=== PATIENT | male | born 1975 ===

== ENCOUNTER 2019-08-20 20:28 | Emergency (ER) | payer MEDICAID ==
[~2019-08-20] VITALS: Ht 177.8 cm; Wt 120.6 kg
[2019-08-20 20:29] VITALS: BP 153/87
[2019-08-20] MEDS ORDERED: NEOSPORIN OINT. PKT 1 PACKET ONE (21:00)
[2019-08-20] MEDS ORDERED: LIDOCAINE 1%-EPI 1:100K, 20ML SQ ONE (21:00)
[2019-08-20] MEDS ORDERED: LIDOCAINE-MPF 1%, 5ML ONE (21:00)
[2019-08-20] MEDS ORDERED: LIDOCAINE 1%-EPI 1:100K, 20ML ONE (21:07)
[2019-08-20] MEDS ORDERED: NEOSPORIN OINT. PKT 1 PACKET TP ONE (21:30)
--- NOTE | 2019-08-20 21:39 | NUR ---
Wound lanced by provider. Patient tolerated well w/ local lidocaine as anesthesia
[2019-08-20] MEDS ORDERED: CEPHALEXIN 500 MG CAPSULE PO ONE (22:00)
[2019-08-20] MEDS ORDERED: SULFAMETH./TRIMETHOPRIM DS 800MG/160MG TABLET PO ONE (22:00)
[2019-08-20] MEDS ORDERED: SULFAMETH./TRIMETHOPRIM DS 800MG/160MG TABLET ONE (22:03)
[2019-08-20] MEDS ORDERED: CEPHALEXIN 500 MG CAPSULE ONE (22:03)
--- NOTE | 2019-08-20 22:07 | NUR ---
medicated per emar
== END 2019-08-20 22:27 | disposition home or self-care (01) ==
LOC: ED 22:00
DX: L03.312 Cellulitis of back [any part except buttock and flank] (principal); L02.212 Cutaneous abscess of back [any part, except buttock and flank]; Z76.0 Encounter for issue of repeat prescription; Z72.9 Problem related to lifestyle, unspecified
CPT/HCPCS: 10060; 99284; J3490

== ENCOUNTER 2019-08-23 20:07 | Emergency (ER) | payer MEDICAID ==
[~2019-08-23] VITALS: Ht 177.8 cm; Wt 120.7 kg
[2019-08-23 20:37] VITALS: BP 146/89
[2019-08-23] MEDS ORDERED: LIDOCAINE 1%-EPI 1:100K, 20ML SQ ONE (21:30)
[2019-08-23] MEDS ORDERED: LIDOCAINE 1%-EPI 1:100K, 20ML ONE (21:32)
== END 2019-08-23 22:14 | disposition home or self-care (01) ==
LOC: ED 22:05
DX: L02.212 Cutaneous abscess of back [any part, except buttock and flank] (principal); Z72.9 Problem related to lifestyle, unspecified; E66.01 Morbid (severe) obesity due to excess calories; Z68.38 Body mass index [BMI] 38.0-38.9, adult
CPT/HCPCS: 10060; 99283; 99284

== ENCOUNTER 2019-08-26 11:23 | Emergency (ER) | payer MEDICAID ==
[~2019-08-26] VITALS: Ht 182.9 cm; Wt 124.0 kg
--- NOTE | 2019-08-26 11:38 | NUR ---
RECEIVED REPORT FROM AISHA. SERGIO COMPLAINED OF BLURRY VISION WHILE AT WORK ON COMPUTER. DENIES HEADACHE. BLURRY VISION "IS STILL THERE BUT NOT BAD". DENIES FALLING. DENIES LOC. ALL EXTREMETIES EQUAL BILATERAL STRENGTH. REPORTS SENSATION ON ALL EXTREMTIES. BLOOD SUGAR IN AMBULANCE WAS "268". SERGIO IN ROOM. CALL LIGHT WITHIN REACH.
[2019-08-26] MEDS ORDERED: LOSA1TAB22 PO (12:28)
[2019-08-26] MEDS ORDERED: SIMV40TA3 PO (12:28)
[2019-08-26] MEDS ORDERED: METO25TA35 PO (12:28)
[2019-08-26] MEDS ORDERED: CEPH-376 PO (12:28)
[2019-08-26] MEDS ORDERED: METF500T27 PO (12:28)
[2019-08-26 12:32] LABS: BASOPHILS # (AUTO) 0.03 x10^3/uL (0-0.1); BASOPHILS % (AUTO) 0 % (0-1); EOSINOPHILS # (AUTO) 0.14 x10^3/uL (0-0.4); EOSINOPHILS % (AUTO) 1 % (1-7); LYMPHOCYTES # (AUTO) 2.46 x10^3/uL (1-3.4); LYMPHOCYTES % (AUTO) 24 % (22-44); MD NO; MEAN CORPUSCULAR HEMOGLOBIN 30.3 pg (27.5-34.5); MEAN CORPUSCULAR HGB CONC 33.1 g/dL (33.2-36.2); MEAN CORPUSCULAR VOLUME 91.5 fL (81-97); MEAN PLATELET VOLUME 7.6 fL (7.4-10.4); MONOCYTES # (AUTO) 0.72 x10^3/uL (0.2-0.8); MONOCYTES % (AUTO) 7 % (2-9); NEUTROPHILS % (AUTO) 68 % (42-75); PLATELET COUNT 448 x10^3/uL (130-400); RED BLOOD COUNT 4.48 x10^6/uL (4.38-5.82)
[2019-08-26 12:39] LABS: ALBUMIN 2.9 g/dL (3.4-5.0); ANION GAP 6 mmol/L (5-15); CALCIUM 9.2 mg/dL (8.5-10.1); CHLORIDE 104 mmol/L (98-107); CREATININE 0.97 mg/dL (0.7-1.3)
[2019-08-26 12:49] LABS: FREE T4 (FREE THYROXINE) 1.43 ng/dL (0.76-1.46)
[2019-08-26 13:39] VITALS: BP 122/86
== END 2019-08-26 13:41 | disposition home or self-care (01) ==
LOC: ED 13:10
DX: E11.65 Type 2 diabetes mellitus with hyperglycemia (principal); I10 Essential (primary) hypertension; H53.8 Other visual disturbances; R51 Headache; Z72.9 Problem related to lifestyle, unspecified
CPT/HCPCS: 36415; 80048; 82040; 84439; 84443; 85025; 93005; 99284

== ENCOUNTER 2019-09-12 19:18 | Emergency (ER) | payer MEDICAID ==
[~2019-09-12] VITALS: Ht 167.6 cm; Wt 121.8 kg
[~2019-09-12 19:18] MED LIST: CEPH-376 PO; LOSA1TAB22 PO; METF500T27 PO; METO25TA35 PO; SIMV40TA3 PO
[2019-09-12 19:28] VITALS: BP 144/89
== END 2019-09-12 20:00 | disposition home or self-care (01) ==
LOC: ED 19:48
DX: L02.414 Cutaneous abscess of left upper limb (principal); I10 Essential (primary) hypertension; E11.9 Type 2 diabetes mellitus without complications; E78.5 Hyperlipidemia, unspecified
CPT/HCPCS: 99281

== ENCOUNTER 2019-10-26 20:41 | Emergency (ER) | payer MEDICAID ==
[~2019-10-26] VITALS: Ht 177.8 cm; Wt 118.3 kg
[2019-10-26 20:43] VITALS: BP 146/89
[2019-10-26] MEDS ORDERED: AZITHROMYCIN 500 MG TABLET ONE (22:18)
[2019-10-26] MEDS ORDERED: AZITHROMYCIN 500 MG TABLET PO ONE (22:30)
== END 2019-10-26 22:26 ==
LOC: ED 22:20
DX: J15.9 Unspecified bacterial pneumonia (principal); R07.89 Other chest pain; I10 Essential (primary) hypertension; E11.9 Type 2 diabetes mellitus without complications
CPT/HCPCS: 71046; 93005; 99283

== ENCOUNTER 2019-11-02 22:33 | Emergency (ER) | payer MEDICAID ==
[~2019-11-02] VITALS: Ht 182.9 cm; Wt 117.9 kg
[2019-11-03] MEDS ORDERED: DEXAMETHASONE 4 MG TABLET PO ONE
[2019-11-03] MEDS ORDERED: DEXAMETHASONE 4 MG TABLET ONE (00:16)
[2019-11-03 00:21] VITALS: BP 132/82
== END 2019-11-03 00:28 | disposition home or self-care (01) ==
LOC: ED 23:30
DX: J20.8 Acute bronchitis due to other specified organisms (principal); E11.9 Type 2 diabetes mellitus without complications; I10 Essential (primary) hypertension
CPT/HCPCS: 71046; 93005; 99283

== ENCOUNTER 2019-11-20 15:45 | Emergency (ER) | payer SELFPAY ==
[~2019-11-20] VITALS: Ht 175.3 cm; Wt 113.0 kg
[~2019-11-20 15:45] MED LIST changes: +SIMV40TA20 PO; -SIMV40TA3 PO
[2019-11-20 15:56] VITALS: BP 150/86
--- NOTE | 2019-11-20 16:13 | NUR ---
PT C/O ABSCESS TO LEFT SIDE OF BACK X5 DAYS, BUT WORSE OVER LAST COUPLE DAYS. HX MRSA. CONNECTED TO MONITORING. CALL LIGHT IN REACH. AWAITING ORDERS AT THIS TIME.
[2019-11-20] MEDS ORDERED: LIDOCAINE 1%-EPI 1:100K, 20ML ONE (16:51)
--- NOTE | 2019-11-20 16:53 | NUR ---
MEDS PULLED FOR PROVIDER ADMIN. I&D SET UP. PROVIDER AT BEDSIDE FOR I&D.
[2019-11-20] MEDS ORDERED: LIDOCAINE-MPF 1%, 5ML INFIL ONE (17:00)
--- NOTE | 2019-11-20 17:37 | NUR ---
PROVIDER COMPLETE WITH I&D. PT RESTING ON GURNEY. BUSH
== END 2019-11-20 18:08 | disposition home or self-care (01) ==
LOC: ED 16:59
DX: L02.212 Cutaneous abscess of back [any part, except buttock and flank] (principal); I10 Essential (primary) hypertension; E11.9 Type 2 diabetes mellitus without complications; E78.5 Hyperlipidemia, unspecified
CPT/HCPCS: 10060; 99283

== ENCOUNTER 2020-04-28 07:06 | Emergency (ER) | payer SELFPAY ==
[~2020-04-28] VITALS: Ht 182.9 cm; Wt 111.2 kg
--- NOTE | 2020-04-28 07:23 | NUR ---
44 Y/O MALE PRESENTS TO ED WITH C/O SOB. "I'VE BEEN COUGHING FOR ABOUT A WEEK. BROWINSH COLOR COMES UP WHEN I COUGH. IT STARTED WITH CONGESTION. I GOT TESTED FOR COVID YESTERDAY. I'VE HAD FEVERS AT HOME, BUT I DON'T KNOW HOW HIGH." EDPA BEDSIDE. PT PLACED ON CONT PULSE OX,NIBP, DIETARY DIRECTOR. NO C/O N/V/D, TRAUMA, SYNCOPE
--- NOTE | 2020-04-28 07:32 | NUR ---
PER LAB RESULTS, PT COVID POSITIVE.
[2020-04-28 08:30] LABS: ALANINE AMINOTRANSFERASE 26 U/L (12-78); ALBUMIN 2.6 g/dL (3.4-5.0); ANION GAP 8 mmol/L (5-15); CALCIUM 8.6 mg/dL (8.5-10.1); CHLORIDE 104 mmol/L (98-107); CREATININE 1.05 mg/dL (0.7-1.3)
[2020-04-28 08:35] LABS: ALKALINE PHOSPHATASE 58 U/L (45-117); BILIRUBIN,TOTAL 0.8 mg/dL (0.2-1.0); TOTAL PROTEIN 7.9 g/dL (6.4-8.2); TROPONIN I < 0.015 ng/mL (0.000-0.045)
--- NOTE | 2020-04-28 09:20 | NUR ---
SPOKE WITH LAB. SHE STATED THE COAG MACHINE HAS BEEN NOT WORKING PROPERLY. ALSO STATES IN "10-20 MINS THE CHEM AND COAGS SHOULD RESULT AND BE WORKING"
[2020-04-28 09:47] LABS: MEAN CORPUSCULAR HEMOGLOBIN 28.9 pg (27.5-34.5); MEAN CORPUSCULAR HGB CONC 33.4 g/dL (33.2-36.2); MEAN CORPUSCULAR VOLUME 86.7 fL (81-97); MEAN PLATELET VOLUME 8.6 fL (7.4-10.4); PLATELET COUNT 234 x10^3/uL (130-400); RED BLOOD COUNT 4.65 x10^6/uL (4.38-5.82); RED CELL DISTRIBUTION WIDTH 13.2 % (9.4-14.8)
[2020-04-28 09:53] LABS: D-DIMER (DIC) 0.41 ug/mlFEU (0.00-0.52); PROTIME 10.3 Seconds (9.6-11.5)
[2020-04-28 10:10] VITALS: BP 154/84
[2020-04-28 10:10] LABS: BASOPHILS # (AUTO) 0.02 x10^3/uL (0-0.1); BASOPHILS % (AUTO) 0 % (0-1); EOSINOPHILS # (AUTO) 0.03 x10^3/uL (0-0.4); EOSINOPHILS % (AUTO) 0 % (1-7); LYMPHOCYTES # (AUTO) 1.21 x10^3/uL (1-3.4); LYMPHOCYTES % (AUTO) 13 % (22-44); MD SCAN; MONOCYTES # (AUTO) 0.69 x10^3/uL (0.2-0.8); MONOCYTES % (AUTO) 7 % (2-9); NEUTROPHILS # (AUTO) 7.55 x10^3/uL (1.8-6.8); NEUTROPHILS % (AUTO) 80 % (42-75)
--- NOTE | 2020-04-28 10:10 | NUR ---
PT RESTING ON GURNEY. MEJIA. AWAITING LAB RESULTS.
--- NOTE | 2020-04-28 10:11 | NUR ---
REPORT TO SPENCER LOPEZ.
--- NOTE | 2020-04-28 11:28 | NUR ---
PT EDUCATED ON APPROPRIATE OF I.S. PT VERBALIZED AND DEMONSTRATED APPROPRIATE USE
--- NOTE | 2020-04-28 11:44 | NUR ---
BREAK RN. PT D/C PER ORDERS. PT HAS ALL OWN BELONGINGS UPON D/C.
== END 2020-04-28 11:47 | disposition home or self-care (01) ==
LOC: ED 08:19
DX: U07.1 COVID-19 (principal); J12.89 Other viral pneumonia; B34.9 Viral infection, unspecified; R50.9 Fever, unspecified; R42 Dizziness and giddiness; R06.02 Shortness of breath; R07.89 Other chest pain; R05 Cough; I10 Essential (primary) hypertension; E11.9 Type 2 diabetes mellitus without complications; R00.0 Tachycardia, unspecified
CPT/HCPCS: 36415; 71045; 80053; 82728; 83605; 83615; 84145; 84484; 85025; 85049; 85379; 85384; 85610; 85730; 86140; 87040; 93005; 99285

== ENCOUNTER 2020-06-07 14:55 | Inpatient (IN) | payer OTHER ==
[~2020-06-07] VITALS: Ht 182.9 cm; Wt 109.8 kg
--- NOTE | 2020-06-07 14:59 | NUR ---
NIL X1
[2020-06-07] MEDS ORDERED: AMLO10TA8 PO (15:20)
[2020-06-07] MEDS ORDERED: LISI-167 PO (15:20)
--- NOTE | 2020-06-07 15:22 | NUR ---
TASK RN: SUBSTERNAL SQUEEZING LIKE CP, WITH EPIGASTRIC PAIN RADIATING TO LEFT FLANK INTERMITTANT SINCE 06/06. DENIES SOB. PT ON ALL MONITORS, NAD NOTED, CALL LIGHT W/I REACH. AWAITING PROVIDER EVAL.
--- NOTE | 2020-06-07 15:24 | NUR ---
SBAR RPT TO SPENCER FARNSWORTH
[2020-06-07] MEDS ORDERED: ACETAMINOPHEN 500 MG TABLET ONE (15:46)
[2020-06-07] MEDS ORDERED: ACETAMINOPHEN 500 MG TABLET PO ONE (16:00)
[2020-06-07] MEDS ORDERED: SODIUM CHLORIDE FLUSH 10ML SYR IVF ONE (16:00)
--- NOTE | 2020-06-07 16:07 | NUR ---
TYLENOL GIVEN FOR 8/10 L FLANK PAIN. URINE COLLECTED/SENT TO LAB. PCXR COMPLETED, PT TO CT.
[2020-06-07 16:18] LABS: MICROSCOPIC NOT IND
[2020-06-07 16:30] LABS: BASOPHILS # (AUTO) 0.02 x10^3/uL (0-0.1); BASOPHILS % (AUTO) 0 % (0-1); EOSINOPHILS # (AUTO) 0.14 x10^3/uL (0-0.4); EOSINOPHILS % (AUTO) 1 % (1-7); LYMPHOCYTES % (AUTO) 25 % (22-44); MD NO; MEAN CORPUSCULAR HEMOGLOBIN 29.1 pg (27.5-34.5); MEAN CORPUSCULAR HGB CONC 33.4 g/dL (33.2-36.2); MEAN CORPUSCULAR VOLUME 87.2 fL (81-97); MEAN PLATELET VOLUME 8.1 fL (7.4-10.4); MONOCYTES # (AUTO) 0.95 x10^3/uL (0.2-0.8); MONOCYTES % (AUTO) 10 % (2-9); NEUTROPHILS % (AUTO) 64 % (42-75); PLATELET COUNT 301 x10^3/uL (130-400); RED BLOOD COUNT 4.59 x10^6/uL (4.38-5.82); RED CELL DISTRIBUTION WIDTH 13.8 % (9.4-14.8)
[2020-06-07 16:37] LABS: ALANINE AMINOTRANSFERASE 19 U/L (12-78); ANION GAP 7 mmol/L (5-15); CALCIUM 9.1 mg/dL (8.5-10.1); CHLORIDE 105 mmol/L (98-107); CREATININE 1.68 mg/dL (0.7-1.3)
[2020-06-07 16:41] LABS: ALKALINE PHOSPHATASE 93 U/L (45-117); BILIRUBIN,TOTAL 0.3 mg/dL (0.2-1.0); TOTAL PROTEIN 7.8 g/dL (6.4-8.2); TROPONIN I < 0.015 ng/mL (0.000-0.045)
[2020-06-07] MEDS ORDERED: SODIUM CHLORIDE 0.9%, 500ML IVBOLUS ONE (17:00)
[2020-06-07] MEDS ORDERED: INSULIN REGULAR 100 UNITS/ML, 3ML VIAL SQ-INSULIN ONE (17:30)
[2020-06-07] MEDS ORDERED: LABETALOL 5MG/ML, 20ML IVPush ONE (17:30)
[2020-06-07] MEDS ORDERED: LABETALOL 5MG/ML, 20ML ONE (17:31)
[2020-06-07] MEDS ORDERED: INSULIN SINGLE DOSE, ER ONE (17:33)
[2020-06-07] MEDS ORDERED: GABA600T7 PO (17:38)
--- NOTE | 2020-06-07 17:42 | NUR ---
PT RATING PAIN AT 5/10, DOWN FROM 8/10. INSULIN AND LABETALOL GIVEN PER ERP ORDER FOR BG 499, BP 202/109. [facility] IN TO SEE PT.
[2020-06-07] MEDS ORDERED: ONDANSETRON ODT 4 MG PO PRN (18:00)
[2020-06-07] MEDS ORDERED: DOCUSATE 100 MG CAPSULE PO PRN (18:00)
[2020-06-07] MEDS ORDERED: LIDODERM 5% PATCH TD PRN (18:00)
[2020-06-07] MEDS ORDERED: OXYcodone IR 5MG TABLET PO PRN (18:00)
[2020-06-07] MEDS ORDERED: LABETALOL 5MG/ML, 20ML IVPush PRN (18:00)
--- NOTE | 2020-06-07 18:03 | NUR ---
KASSI FROM LAB CALLED, STATED "COVID TEST IS POSITIVE." RESULTS REPORTED TO DR. LINO AND PRIMARY RN MARCIE, BOTH AWARE.
--- NOTE | 2020-06-07 18:40 | NUR ---
REPORT TO FABIEN LUBIN READY FOR TRANSPORT.
[2020-06-07 19:15] VITALS: BP 136/76
[2020-06-07] MEDS: MELATONIN 5 MG TABLET PO PRN (20:26)
[2020-06-07] MEDS: GABAPENTIN 300 MG CAPSULE PO SCH (20:26)
[2020-06-07] MEDS: LACTATED RINGERS 1,000 ML IV SCH (20:42)
[2020-06-08 00:38] VITALS: BP 137/87
[2020-06-08] MEDS: LACTATED RINGERS 1,000 ML IV SCH ×3 (04:37→22:07)
[2020-06-08 05:31] LABS: BASOPHILS # (AUTO) 0.06 x10^3/uL (0-0.1); BASOPHILS % (AUTO) 1 % (0-1); EOSINOPHILS # (AUTO) 0.18 x10^3/uL (0-0.4); EOSINOPHILS % (AUTO) 2 % (1-7); LYMPHOCYTES # (AUTO) 2.52 x10^3/uL (1-3.4); LYMPHOCYTES % (AUTO) 22 % (22-44); MD NO; MEAN CORPUSCULAR HEMOGLOBIN 29.2 pg (27.5-34.5); MEAN CORPUSCULAR HGB CONC 33.6 g/dL (33.2-36.2); MONOCYTES # (AUTO) 0.89 x10^3/uL (0.2-0.8); MONOCYTES % (AUTO) 8 % (2-9); NEUTROPHILS % (AUTO) 68 % (42-75); PLATELET COUNT 293 x10^3/uL (130-400); RED BLOOD COUNT 4.49 x10^6/uL (4.38-5.82); RED CELL DISTRIBUTION WIDTH 13.6 % (9.4-14.8)
[2020-06-08 05:45] LABS: ANION GAP 8 mmol/L (5-15); CALCIUM 9.1 mg/dL (8.5-10.1); CHLORIDE 107 mmol/L (98-107)
[2020-06-08 05:46] LABS: CREATININE 1.59 mg/dL (0.7-1.3)
[2020-06-08 06:48] VITALS: BP 149/99
[2020-06-08] MEDS: LISINOPRIL 10 MG TABLET PO SCH (10:01)
[2020-06-08] MEDS: GABAPENTIN 300 MG CAPSULE PO SCH ×2 (10:01→20:59)
[2020-06-08] MEDS: INSULIN LISPRO 100 UNITS/ML, PEN SQ-INSULIN SCH ×4 (10:01→21:03)
[2020-06-08] MEDS: AMLODIPINE 10 MG TAB PO SCH (10:01)
[2020-06-08] MEDS ORDERED: KETOROLAC 30 MG/1 ML IM PRN (11:00)
[2020-06-08] MEDS: POTASSIUM CHLORIDE 10 MEQ TABLET.ER PO SCH (11:00)
[2020-06-08] MEDS: TAMSULOSIN 0.4 MG CAP.ER.24H PO SCH (11:08)
[2020-06-08 13:08] VITALS: BP 134/88
[2020-06-08] MEDS: ACETAMINOPHEN 325 MG TABLET PO PRN ×2 (16:30→20:59)
[2020-06-08] MEDS: metFORMIN 850 MG TABLET PO SCH (17:17)
[2020-06-08 20:53] VITALS: BP 130/80
[2020-06-08] MEDS: MELATONIN 5 MG TABLET PO PRN (20:59)
[2020-06-09 02:11] VITALS: BP 157/99
[2020-06-09 02:15] VITALS: BP 153/96
[2020-06-09] MEDS: ACETAMINOPHEN 325 MG TABLET PO PRN (02:16)
[2020-06-09] MEDS: LACTATED RINGERS 1,000 ML IV SCH ×2 (04:05→08:51)
[2020-06-09 06:04] LABS: ANION GAP 3 mmol/L (5-15); CALCIUM 9.5 mg/dL (8.5-10.1); CHLORIDE 106 mmol/L (98-107); CREATININE 1.27 mg/dL (0.7-1.3)
[2020-06-09 06:06] LABS: BASOPHILS # (AUTO) 0.03 x10^3/uL (0-0.1); BASOPHILS % (AUTO) 0 % (0-1); EOSINOPHILS # (AUTO) 0.28 x10^3/uL (0-0.4); EOSINOPHILS % (AUTO) 3 % (1-7); LYMPHOCYTES # (AUTO) 3.15 x10^3/uL (1-3.4); LYMPHOCYTES % (AUTO) 30 % (22-44); MD NO; MEAN CORPUSCULAR HEMOGLOBIN 28.9 pg (27.5-34.5); MEAN CORPUSCULAR VOLUME 87.6 fL (81-97); MONOCYTES # (AUTO) 0.92 x10^3/uL (0.2-0.8); MONOCYTES % (AUTO) 9 % (2-9); NEUTROPHILS # (AUTO) 6.07 x10^3/uL (1.8-6.8); NEUTROPHILS % (AUTO) 58 % (42-75); PLATELET COUNT 270 x10^3/uL (130-400); RED BLOOD COUNT 4.34 x10^6/uL (4.38-5.82)
[2020-06-09 07:27] VITALS: BP 136/92
[2020-06-09] MEDS: AMLODIPINE 10 MG TAB PO SCH (07:32)
[2020-06-09] MEDS: INSULIN LISPRO 100 UNITS/ML, PEN SQ-INSULIN SCH ×2 (07:32→10:44)
[2020-06-09] MEDS: metFORMIN 850 MG TABLET PO SCH (07:32)
[2020-06-09] MEDS: GABAPENTIN 300 MG CAPSULE PO SCH (07:32)
[2020-06-09] MEDS: POTASSIUM CHLORIDE 10 MEQ TABLET.ER PO SCH (07:32)
[2020-06-09] MEDS: TAMSULOSIN 0.4 MG CAP.ER.24H PO SCH (07:32)
[2020-06-09] MEDS: LISINOPRIL 10 MG TABLET PO SCH (07:33)
[2020-06-09] MEDS ORDERED: TAMS-11 PO (09:45)
[2020-06-09] MEDS ORDERED: LISI-167 PO (09:45)
[2020-06-09] MEDS ORDERED: METF850T PO (09:45)
[2020-06-09] MEDS ORDERED: GLYB2.5T2 PO (09:45)
[2020-06-09 12:14] VITALS: BP 147/83
== END 2020-06-09 13:45 | disposition home or self-care (01) | DRG 177 ==
LOC: ED 15:32 → EDIP 17:13 → 4EST 19:06
PROVIDERS: ADMIT Hospitalist; ATTEND Hospitalist
DX: U07.1 COVID-19 (principal); N17.0 Acute kidney failure with tubular necrosis; N13.2 Hydronephrosis with renal and ureteral calculous obstruction; E66.01 Morbid (severe) obesity due to excess calories; I10 Essential (primary) hypertension; E11.65 Type 2 diabetes mellitus with hyperglycemia; E78.5 Hyperlipidemia, unspecified; Z82.49 Family history of ischemic heart disease and other diseases of the circulatory system; Z83.3 Family history of diabetes mellitus; Z88.1 Allergy status to other antibiotic agents; Z79.899 Other long term (current) drug therapy
CPT/HCPCS: 36415; 71045; 74176; 80048; 80053; 81003; 82962; 83036; 83690; 84484; 85025; 87635; 93005; 96372; 96374; G0378; J1815; J7040; J7120